=== PATIENT | female | born 1945 | race Caucasian/White ===

== ENCOUNTER 2019-07-24 08:36 | Inpatient (IN) | payer MEDICARE, OTHER ==
[~2019-07-24] VITALS: Ht 172.7 cm; Wt 78.9 kg
[2019-07-24 10:00] VITALS: BP 138/69
--- NOTE | 2019-07-24 10:15 | NUR ---
MS PLATFORM ENGINEER NOTES Received Patient via gurney from [facility] at this time. A/O x 3-4. VS stable with no acute distress. Breathing even and unlabored on room air with no respiratory distress. Patient stated LEFT HIP pain of 6/10. Will intervene as ordered. Obtained skin assessment pictures and placed in chart. Patient refused skin assessment of BACK and FEET d/t pain upon movement. Dan Cath in place and patent with clear flor output noted. 22g PIV on LEFT HAND clean, dry, intact and flushing well. Safety precautions in place. Bed locked and set to lowest position with side rails x 2 up. All needs rendered at this time. Call light within reach. Will continue to monitor.
[2019-07-24] MEDS ORDERED: CITA20TA16 PO (11:31)
[2019-07-24] MEDS ORDERED: CARV25TA PO (11:31)
[2019-07-24] MEDS ORDERED: AMLO10TA4 PO (11:31)
[2019-07-24] MEDS ORDERED: METF500S7 PO (11:31)
[2019-07-24] MEDS ORDERED: TRAM50TA2 PO (11:31)
[2019-07-24] MEDS ORDERED: ENAL10TA PO (11:31)
[2019-07-24] MEDS ORDERED: GABA-534 PO (11:31)
[2019-07-24] MEDS ORDERED: ROSU10TA29 PO (11:31)
[2019-07-24] MEDS ORDERED: FURO-144 PO (11:31)
[2019-07-24] MEDS ORDERED: LORA0.5T PO (11:31)
--- NOTE | 2019-07-24 12:00 | NUR ---
MS RN NOTES Notified Kisha MEIER, Patient complains of pain 6/10 on LEFT HIP s/p GLF. Per MD, may place order for Morphine Sulfate 4mg IVP PRN q4h. Order noted and carried out. Will continue to monitor.
[2019-07-24] MEDS ORDERED: Z GUARD REMEDY 2 OZ OINT TP PRN (13:00)
[2019-07-24] MEDS ORDERED: ONDANSETRON HCL/PF 4 MG/2 ML VIAL IVP PRN (13:00)
[2019-07-24] MEDS: MORPHINE SULFATE INJ 4 MG/ML DISP.SYRIN IV PRN ×2 (13:05→17:16)
[2019-07-24 14:54] LABS: CALCIUM, SERUM 8.5 mg/dL (8.5-10.1); CARBON DIOXIDE 24 mmol/L (21-32); CHLORIDE 103 mmol/L (98-107); CREATININE 0.5 mg/dL (0.6-1.3); GLUCOSE 136 mg/dL (74-106); POTASSIUM 3.8 mmol/L (3.5-5.1); SODIUM SERUM 137 mmol/L (136-145); UREA NITROGEN, BLOOD 12 mg/dL (7-18)
--- NOTE | 2019-07-24 15:29 | NUR ---
MS RN NOTES Patient states "feeling anxious" and request Ativan. Notified Kisha MEIER. Per MD, may give Ativan 1mg PO PRN q8h. Order noted and carried out. Will continue to monitor.
[2019-07-24 16:00] VITALS: BP 150/70
[2019-07-24] MEDS: ENOXAPARIN SODIUM 40 MG/0.4 ML DISP.SYRIN SQ SCH ×2 (16:06→20:33)
[2019-07-24] MEDS: LORAZEPAM 1 MG TABLET PO PRN (16:08)
[2019-07-24] MEDS: ACETAMINOPHEN 325 MG TABLET PO PRN ×3 (16:17→22:18)
--- NOTE | 2019-07-24 18:33 | NUR ---
MS RN NOTES Obtained signed surgical consents at this time. Patient verbalized understanding. Placed signed consents in chart.
--- NOTE | 2019-07-24 18:44 | NUR ---
MS RN CLOSING NOTES Patient asleep and resting at this time. A/O x 4. VS stable with no acute distress. Breathing even and unlabored on 2LPM via NC with no respiratory distress. Patient stated tolerable LEFT HIP pain of 4/10. Administered Morphine 4mg IVP at 1746. Dan Cath in place and patent with clear flor output noted. 22g PIV on LEFT HAND clean, dry, intact and flushing well. Safety precautions in place. Bed locked and set to lowest position with side rails x 2 up. All needs rendered at this time. Call light within reach. Will endorse plan of care to oncoming shift.
--- NOTE | 2019-07-24 19:30 | NUR ---
MS RN OPENING NOTE RECEIVED PATIENT IN BED. A/O X4. PATIENT ON OXYGEN 2L/MIN VIA NASAL CANNULA. RESPIRATIONS ARE EVEN A ND UNLABORED. NO SIGNS OF SOB. DENIES PAIN AT THIS TIME. IV ACCESS IN LEFT HAND GAUGE 22 PATENT AND SALINE LOCKED. ATKINS CATHETER PRESENT, DRAINING TO GRAVITY, URINE IS CLEAR AND YNES. BED IS LOW AND LOCK, SIDE RAILS UP X2, HOB ELEVATED 70 DEGREES. CALL LIGHT WITHIN REACH. WILL CONTINUE TO MONITOR.
[2019-07-24 20:00] VITALS: BP 132/62
[2019-07-24 20:01] VITALS: BP 132/62
--- NOTE | 2019-07-24 20:29 | NUR ---
MS RN NOTE CALLED DR COOK TO ASK IF PATIENT IS OK TO RECEIVE LOVENOX 40MG D/T SCHEDULES SURGERY FOR 07/26 AT 1300. TELEPHONE ORDER: OK TO GIVE LOVENOX 40MG, READ BACK AND CARRIED OUT. WILL CONTINUE TO MONITOR.
--- NOTE | 2019-07-24 22:20 | NUR ---
MS RN NOTE ADMINISTERED PRN TYLENOL 650MG FOR MILD PAIN 3/10 IN LEFT LEG. WILL CONTINUE TO MONITOR.
[2019-07-25] MEDS: MORPHINE SULFATE INJ 4 MG/ML DISP.SYRIN IV PRN ×5 (01:05→20:19)
--- NOTE | 2019-07-25 01:05 | NUR ---
MS RN NOTE ADMINISTERED PRN MORPHINE 4MG FOR 8/10 PAIN IN LEFT HIP. WILL CONTINUE TO MONITOR.
--- NOTE | 2019-07-25 06:15 | NUR ---
MS RN NOTE ADMINISTERED PRN MORPHINE 4MG FOR 10/10 LEFT HIP PAIN. WILL CONTINUE TO MONITOR.
[2019-07-25 06:47] LABS: BASOPHILS % (AUTO) 0.3 % (0.0-2.0); EOSINOPHILS % (AUTO) 2.3 % (0.0-6.0); HEMATOCRIT 39 % (33-45); HEMOGLOBIN 13.4 g/dL (11.5-14.8); LYMPHOCYTES # (AUTO) 0.7 /CMM (0.8-4.8); LYMPHOCYTES % (AUTO) 7.3 % (20.0-44.0); MEAN CORPUSCULAR HGB CONC 34 g/dl (31.0-36.0); MEAN CORPUSCULAR VOLUME 83 fL (82-100); MONOCYTES # (AUTO) 0.6 /CMM (0.1-1.30); MONOCYTES % (AUTO) 5.9 % (2.0-12.0); NEUTROPHILS # (AUTO) 8.2 /CMM (1.8-8.9); NEUTROPHILS % (AUTO) 84.2 % (43.0-81.0); PLATELET COUNT (AUTO) 152 /CMM (150-450); RED BLOOD CELL COUNT(AUTO) 4.73 MIL/uL (4.0-5.2); WHITE BLOOD COUNT (AUTO) 9.8 K/uL (4.3-11.0)
--- NOTE | 2019-07-25 06:58 | NUR ---
MS RN CLOSING NOTE PATIENT IS RESTING IN BED. A/O X4. PATIENT ON OXYGEN 2L/MIN VIA NASAL CANNULA. RESPIRATIONS ARE EVEN A ND UNLABORED. NO SOB THROUGHOUT SHIFT. CONTROLLED PAIN WITH MORPHINE 4MG THROUGHOUT SHIFT. IV ACCESS MAINTAINED IN LEFT HAND GAUGE 22 PATENT AND SALINE LOCKED. ATKINS CATHETER MAINTAINED, DRAINING TO GRAVITY, URINE IS CLEAR AND YNES OUTPUT 600. SKIN KEPT CLEAN AND DRY. REFUSED REPOSITIONING D/T L HIP FRACTURE. BED REMAINS IS LOW AND LOCK, SIDE RAILS UP X2, HOB ELEVATED 70 DEGREES. CALL LIGHT WITHIN REACH. WILL ENDORSE TO NEXT SHIFT FOR THERESA.
[2019-07-25 07:07] LABS: ALANINE AMINOTRANSFERASE < 6 U/L (12-78); ALBUMIN 3.4 g/dL (3.4-5.0); ALKALINE PHOSPHATASE 126 U/L (46-116); ASPARTATE AMINOTRANSFERASE 6 U/L (15-37); BILIRUBIN,TOTAL 1.3 mg/dL (0.2-1.0); CALCIUM, SERUM 8.6 mg/dL (8.5-10.1); CARBON DIOXIDE 25 mmol/L (21-32); CHLORIDE 100 mmol/L (98-107); CREATININE 0.5 mg/dL (0.6-1.3); GLUCOSE 139 mg/dL (74-106); PHOSPHORUS 3.7 mg/dL (2.5-4.9); POTASSIUM 3.8 mmol/L (3.5-5.1); SODIUM SERUM 134 mmol/L (136-145); TOTAL PROTEIN, SERUM 6.9 g/dL (6.4-8.2); UREA NITROGEN, BLOOD 11 mg/dL (7-18)
[2019-07-25 07:21] LABS: CHOLESTEROL 117 mg/dL (<200); HDL CHOLESTEROL 52 mg/dL (40-60); LDL 54 mg/dL (0-99); THYROID STIMULATING HORMONE 1.504 uIU/mL (0.358-3.74); TRIGLYCERIDES 72 mg/dL (30-150)
[2019-07-25] MEDS: ACETAMINOPHEN 325 MG TABLET PO PRN ×2 (07:45→15:20)
--- NOTE | 2019-07-25 07:45 | NUR ---
MS/RN - Assessment Patient is awake, anxious, A/O x 4, c/o mild left hip pain, medicated with Tylenol 650 mg, no apparent distress, on oxygen at 2lpm via NC. Dan catheter in place for hip fracture, draining dark yellow urine. Plan for left hip IM nailing with Dr. Rivas tomorrow 07/25/19 at 13:00, consent signed, continue NWB on the LLE. Labs reviewed, no critical results noted. All needs attended. Will continue with current medical management.
[2019-07-25 08:00] VITALS: BP 141/65
[2019-07-25] MEDS: LORAZEPAM 1 MG TABLET PO PRN ×2 (08:11→16:26)
--- NOTE | 2019-07-25 13:00 | NUR ---
MS/RN - Notes Patient refused to be turned and repositioned every 2 hours and specialty mattress to be placed for skin management. Explained the importance but still refused.
--- NOTE | 2019-07-25 15:05 | NUR ---
MS/RN - Notes Patient sleeping comfortably, no s/s of pain, not in any form of distress.
[2019-07-25 16:00] VITALS: BP 167/72
--- NOTE | 2019-07-25 17:51 | NUR ---
MS/RN - End of shift summary No significant change in condition seen, remain afebrile, left hip pain controlled with Morphine alternating with Tylenol, anxious at times, Ativan given as ordered. Patient still refused to be repositioned per protocol. Patient scheduled for left hip IM nailing tomorrow at 13:[address] Rivas. All needs attended and met. Will continue with current medical management.
--- NOTE | 2019-07-25 19:10 | NUR ---
MS RN NOTE RECEIVED PT IN STABLE CONDITION A/O X4, CURRENTLY RESTING, EASILY AROUSABLE WHEN NAME IS CALLED. NO SIGNS OF SOB OR DISTRESS, PAIN CURRENTLY TOLERABLE. ATKINS IN PLACE WITH ADEQUATE YELLOW URINE DRAINING. IV IN L HAND IN PLACE #[address] S/L. OFFERED TO REPLACE PT MATTRESS, CURRENTLY REFUSING. ALL CURRENT NEEDS ATTENDED TO. BED LOW, LOCKED, UPPER RAILS UP AND CALL LIGHT WITHIN REACH. WILL CONT. TO MONITOR.
[2019-07-25 20:00] VITALS: BP 147/65
[2019-07-25] MEDS: ENOXAPARIN SODIUM 40 MG/0.4 ML DISP.SYRIN SQ SCH (21:00)
[2019-07-25] MEDS: Z GUARD REMEDY 2 OZ OINT TP SCH (21:39)
--- NOTE | 2019-07-25 22:00 | NUR ---
MS RN NOTE ATTEMPTED TO CHANGE PT MATTRESS, PT DECLINED. STATED THAT IT SHOULD BE DONE WHILE SHE IS IN SURGERY. SHE ALSO STATES SHE DOES NOT WANT TO BE REPOSITIONED. WILL CONT. TO ASSESS AND ASK PT THROUGHOUT SHIFT.
[2019-07-26] MEDS: MORPHINE SULFATE INJ 4 MG/ML DISP.SYRIN IV PRN ×5 (02:00→22:30)
--- NOTE | 2019-07-26 02:00 | NUR ---
MS RN NOTE PT ASKING FOR PRN MORPHINE IV FOR PAIN 9/10 IN L HIP. ALSO ASKED PT IF SHE WOULD LIKE TO BE REPOSITIONED, SHE DECLINED, RISKS AND BENEFITS MADE AWARE WITH VERBALIZATION OF UNDERSTANDING.
--- NOTE | 2019-07-26 04:50 | NUR ---
MS ARGUETA NOTE PT C/O L HIP PAIN 06/17 MORPHINE 4 MG IV GIVEN. WILL CONT. TO MONITOR. Addendum: 07/27/19 at 0613 by MIA FELTON RN WRONG DATE TYPED. SUPPOSED TO BE 07/27/19
--- NOTE | 2019-07-26 05:57 | NUR ---
MS RN NOTE PT DECLINED REPOSITIONING, BED BATH, AND LINEN CHANGE. RISKS AND BENEFITS MADE AWARE WITH VERBALIZATION OF UNDERSTANDING. WILL CONT. TO MONITOR.
[2019-07-26 06:11] LABS: BASOPHILS % (AUTO) 0.7 % (0.0-2.0); EOSINOPHILS % (AUTO) 3.7 % (0.0-6.0); HEMATOCRIT 36 % (33-45); HEMOGLOBIN 12.4 g/dL (11.5-14.8); LYMPHOCYTES # (AUTO) 1.3 /CMM (0.8-4.8); LYMPHOCYTES % (AUTO) 18.5 % (20.0-44.0); MEAN CORPUSCULAR HGB CONC 34 g/dl (31.0-36.0); MEAN CORPUSCULAR VOLUME 83 fL (82-100); MONOCYTES # (AUTO) 0.6 /CMM (0.1-1.30); MONOCYTES % (AUTO) 8.7 % (2.0-12.0); NEUTROPHILS # (AUTO) 4.7 /CMM (1.8-8.9); NEUTROPHILS % (AUTO) 68.4 % (43.0-81.0); PLATELET COUNT (AUTO) 150 /CMM (150-450); WHITE BLOOD COUNT (AUTO) 6.9 K/uL (4.3-11.0)
--- NOTE | 2019-07-26 06:24 | NUR ---
MS RN NOTE PT IN STABLE CONDITION A/O X4, CURRENTLY RESTING, EASILY AROUSABLE WHEN NAME IS CALLED. NO SIGNS OF SOB OR DISTRESS, PAIN CURRENTLY TOLERABLE. ATKINS IN PLACE WITH . IV IN L HAND IN PLACE #[address] S/L. OFFERED TO REPLACE PT MATTRESS, REPOSITION, AND CLEAN PATIENT, CURRENTLY REFUSING, STATING TO PLEASE LEAVE HER ALONE. PT NPO SINCE MIDNIGHT, AWARE OF TODAY'S PROCEDURE, CONSENTS SIGNED. ALL CURRENT NEEDS ATTENDED TO. BED LOW, LOCKED, UPPER RAILS UP AND CALL LIGHT WITHIN REACH. WILL CONT. TO MONITOR AND ENDORSE TO NEXT SHIFT FOR THERESA.
[2019-07-26 06:39] LABS: CALCIUM, SERUM 8.4 mg/dL (8.5-10.1); CARBON DIOXIDE 26 mmol/L (21-32); CHLORIDE 100 mmol/L (98-107); CREATININE 0.4 mg/dL (0.6-1.3); GLUCOSE 124 mg/dL (74-106); MAGNESIUM 2.1 mg/dL (1.8-2.4); POTASSIUM 3.9 mmol/L (3.5-5.1); SODIUM SERUM 135 mmol/L (136-145); UREA NITROGEN, BLOOD 11 mg/dL (7-18)
--- NOTE | 2019-07-26 07:16 | NUR ---
MS RN NOTES PATIENT IN BED ALERT ORIENTED X 4 . NO ACUTE DISTRESS NOTED. BREATHING UNLABORED. IV ACCESS PATENT AND INTACT. SAFETY MEASURES IN PLACE. CALL LIGHT WITHIN REACH. WILL CONTINUE TO MONITOR ACCORDINGLY.
[2019-07-26 08:00] VITALS: BP 152/62
[2019-07-26 08:06] VITALS: BP 152/62
--- NOTE | 2019-07-26 09:15 | NUR ---
WOUND CARE CONSULT: PT PRESENTS WITH RASH TO BREASTFOLDS, ABDOMINAL AND GROIN FOLDS, PRESENT ON ADMISSION WELL DRY SKIN WITH HEMOSIDERIN STAINING AND SCARRING TO LOWER LEGS. PT REFUSED TO TURN FOR FULL SKIN ASSESSMENT OF BACK, SACRAL AND BUTTOCKS AREA. RECOMMENDATIONS MADE FOR SKIN PROTECTION. DISCUSSED WITH NURSING STAFF. WILL SEE PRN. MEIER IN AGREEMENT WITH PLAN OF CARE. Addendum: 07/26/19 at 0917 by KAELYN PALM WNDNU Amended: Links added.
[2019-07-26] MEDS: Z GUARD REMEDY 2 OZ OINT TP SCH ×2 (09:58→21:06)
--- NOTE | 2019-07-26 10:30 | NUR ---
MS RN NOTES FOLLOWED UP WITH PHARMACY EUCERIN CREAM NOT AVAILABLE ON THE FLOOR AT THIS TIME, SPOKE WITH [facility], THEY WILL BRING TO THE FLOOR. WILL ADMINISTER ONCE AVAILABLE.
[2019-07-26] MEDS: LORAZEPAM 1 MG TABLET PO PRN ×2 (10:37→20:25)
--- NOTE | 2019-07-26 10:37 | NUR ---
MS RN NOTES PATIENT SEEN AND EVALUATED BY DR KACI QUINONES, PER DR QUINONES OK TO GIVE ATIVAN AND MORPHINE. ATIVAN GIVEN WITH ZIP OF WATER.
--- NOTE | 2019-07-26 11:28 | NUR ---
MS RN NOTES PATIENT REFUSED TO TURN FOR FULL SKIN ASSESSMENT OF BACK, SACRAL AND BUTTOCKS AREA DESPITE OF EXPLANATION OF RISKS AND BENEFITS. PATIENT STATED " I DON'T WANT TO BE MOVED ".
[2019-07-26] MEDS: MINERAL OIL/PETROLATUM,WHITE 120 GM JAR TP SCH (11:32)
--- NOTE | 2019-07-26 13:40 | NUR ---
MS RN NOTES PATIENT TRANSPORTED TO OPERATING ROOM WITH STABLE VITAL SIGNS.
[2019-07-26] MEDS ORDERED: HYDROMORPHONE INJ 2 MG/ML DISP.SYRIN ONE (14:07)
[2019-07-26] MEDS ORDERED: BUPIVACAINE 0.5 % PF 150 MG/30 ML VIAL ONE (15:01)
[2019-07-26] MEDS ORDERED: BACITRACIN 50000 UNITS/VIAL ONE (15:01)
[2019-07-26 16:00] VITALS: BP 151/78
--- NOTE | 2019-07-26 16:30 | NUR ---
MS RN NOTES PATIENT CAME BACK FROM RECOVERY ROOM, REPORT GIVEN BY YUKI AT BEDSIDE, ALERT ORIENTED X 4 WITH STABLE VITAL SIGNS. NO ACUTE DISTRESS NOTED. BREATHING UNLABORED. ON O2 AT 2LPM SATURATING 97-98 %. IV ACCESS PATENT AND INTACT. SAFETY MEASURES IN PLACE. CALL LIGHT WITHIN REACH. WILL CONTINUE TO MONITOR ACCORDINGLY.
[2019-07-26] MEDS: CLOTRIMAZOLE 1% 15 GM TUBE TP SCH (17:04)
--- NOTE | 2019-07-26 19:02 | NUR ---
MS RN NOTES PATIENT IN ALERT ORIENTED X 4.VITAL SIGNS REMAIN STABLE. NO ACUTE DISTRESS NOTED. BREATHING UNLABORED. IV ACCESS PATENT AND INTACT. NEEDS ATTENDED AND ANTICIPATED. KEPT CLEAN DRY AND COMFORTABLE.LEFT HIP AND LEFT THIGH DRESSING CLEAN DRY AND INTACT. SAFETY MEASURES IN PLACE. CALL LIGHT WITHIN REACH. WILL ENDORSE TO NIGHT NURSE FOR CONTINUITY OF CARE
--- NOTE | 2019-07-26 19:05 | NUR ---
MS RN NOTE RECEIVED PT IN STABLE CONDITION A/O X4, CURRENTLY RESTING IN BED. NO SIGNS OF SOB OR DISTRESS, NO C/O PAIN OR N/V. L SIDE SX SITE DRY AND INTACT. ATKINS IN PLACE WITH ADEQUATE URINE DRAINING. IV IN R WRIST #[address] S/L. ALL CURRENT NEEDS ATTENDED TO. BED LOW, LOCKED, UPPER RAILS UP, AND CALL LIGHT WITHIN REACH, WILL OFFER TO REPOSITION PT PER PROTOCOL AND CONT. TO MONITOR CLOSELY.
[2019-07-26 20:00] VITALS: BP 156/71
--- NOTE | 2019-07-26 20:25 | NUR ---
MS RN NOTE PT C/O ANXIETY, ATIVAN 1 MG IV GIVEN. WILL CONT. TO MONITOR.
[2019-07-26] MEDS: CEFAZOLIN 2 GM in IV D5W 100 ML IV SCH (21:05)
--- NOTE | 2019-07-26 22:30 | NUR ---
MS RN NOTE PT C/O L HIP PAIN 07/18 MORPHINE 4 MG IV GIVEN. WILL CONT. TO MONITOR
[2019-07-27] MEDS: MORPHINE SULFATE INJ 4 MG/ML DISP.SYRIN IV PRN ×4 (04:50→22:41)
--- NOTE | 2019-07-27 04:50 | NUR ---
MS RN NOTE PT C/O L HIP PAIN 07/18 MORPHINE 4 MG IV GIVEN. WILL CONT. TO MONITOR.
[2019-07-27] MEDS: CEFAZOLIN 2 GM in IV D5W 100 ML IV SCH ×2 (05:00→14:59)
--- NOTE | 2019-07-27 06:16 | NUR ---
MS RN NOTE PT IN STABLE CONDITION A/O X4, CURRENTLY RESTING IN BED. NO SIGNS OF SOB OR DISTRESS, NO C/O PAIN OR N/V. L SIDE SX SITE DRY AND INTACT. ATKINS IN PLACE WITH 800 ML OUT. IV IN R WRIST #[address] S/L. ALL CURRENT NEEDS ATTENDED TO. BED LOW, LOCKED, UPPER RAILS UP, AND CALL LIGHT WITHIN REACH, PT REPOSITIONED PER PROTOCOL AND CONT. TO MONITOR CLOSELY AND ENDORSE TO NEXT SHIFT FOR THERESA.
--- NOTE | 2019-07-27 07:10 | NUR ---
MS RN NOTES PATIENT IN BED ALERT ORIENTED X 4 . NO ACUTE DISTRESS NOTED. BREATHING UNLABORED. IV ACCESS PATENT AND INTACT. LEFT HIP AND THIGH DRESSING CLEAN, DRY AND INTACT. ATKINS CATHETER INTACT, DRAINING WELL. SAFETY MEASURES IN PLACE. CALL LIGHT WITHIN REACH. WILL CONTINUE TO MONITOR ACCORDINGLY.
[2019-07-27 07:40] LABS: CARBON DIOXIDE 26 mmol/L (21-32); CHLORIDE 99 mmol/L (98-107); CREATININE 0.5 mg/dL (0.6-1.3); GLUCOSE 159 mg/dL (74-106); MAGNESIUM 2.3 mg/dL (1.8-2.4); PHOSPHORUS 3.2 mg/dL (2.5-4.9); POTASSIUM 4.6 mmol/L (3.5-5.1); SODIUM SERUM 134 mmol/L (136-145); UREA NITROGEN, BLOOD 14 mg/dL (7-18)
[2019-07-27 08:00] VITALS: BP 160/70
[2019-07-27] MEDS: MINERAL OIL/PETROLATUM,WHITE 120 GM JAR TP SCH (08:30)
[2019-07-27] MEDS: CLOTRIMAZOLE 1% 15 GM TUBE TP SCH ×2 (08:30→17:15)
[2019-07-27] MEDS: Z GUARD REMEDY 2 OZ OINT TP SCH ×2 (08:32→21:00)
--- NOTE | 2019-07-27 08:35 | NUR ---
MS RN NOTES PATIENT SEEN AND EVALUATED BY LEANNE SAHU DNP, MADE AWARE OF BLOOD PRESSURE 160/70, NO NEW ORDERS MADE AT THIS TIME. ALSO CLARIFIED ATKINS CATHETER SAID TO KEEP ATKINS CATHETER UNTIL PATIENT IS WALKING ALREADY.
[2019-07-27 09:23] LABS: BASOPHILS % (AUTO) 0.4 % (0.0-2.0); EOSINOPHILS % (AUTO) 0.5 % (0.0-6.0); HEMATOCRIT 36 % (33-45); HEMOGLOBIN 12.2 g/dL (11.5-14.8); LYMPHOCYTES # (AUTO) 0.9 /CMM (0.8-4.8); LYMPHOCYTES % (AUTO) 10.2 % (20.0-44.0); MEAN CORPUSCULAR HGB CONC 34 g/dl (31.0-36.0); MEAN CORPUSCULAR VOLUME 83 fL (82-100); MONOCYTES # (AUTO) 0.6 /CMM (0.1-1.30); MONOCYTES % (AUTO) 6.8 % (2.0-12.0); NEUTROPHILS # (AUTO) 7.6 /CMM (1.8-8.9); NEUTROPHILS % (AUTO) 82.1 % (43.0-81.0); PLATELET COUNT (AUTO) 151 /CMM (150-450); RED BLOOD CELL COUNT(AUTO) 4.37 MIL/uL (4.0-5.2); WHITE BLOOD COUNT (AUTO) 9.2 K/uL (4.3-11.0)
[2019-07-27] MEDS: ENOXAPARIN SODIUM 40 MG/0.4 ML DISP.SYRIN SQ SCH (15:00)
[2019-07-27 15:45] VITALS: BP 145/64
--- NOTE | 2019-07-27 18:55 | NUR ---
MS RN NOTES PATIENT REFUSED TO BE REPOSITIONED AND TO CHECK HER BACK DESPITE OF EXPLANATION OF RISKS AND BENEFITS.
--- NOTE | 2019-07-27 19:00 | NUR ---
MS RN NOTES PATIENT IN BED ALERT ORIENTED X 4 . NO ACUTE DISTRESS NOTED. BREATHING UNLABORED. IV ACCESS PATENT AND INTACT. LEFT HIP AND THIGH SURGICAL DRESSING CLEAN, DRY AND INTACT. ATKINS CATHETER INTACT, DRAINING WELL. NEEDS ATTENDED AND ANTICIPATED. KEPT CLEAN DRY AND COMFORTABLE. DUE MEDICATIONS GIVEN, NO ASE NOTED. SAFETY MEASURES IN PLACE. CALL LIGHT WITHIN REACH. WILL ENDORSE TO NIGHT NURSE FOR CONTINUITY OF CARE.
--- NOTE | 2019-07-27 19:30 | NUR ---
MS RODOLFO INITIAL NOTES WHILE DOING OUT ROUNDS AND GETTING REPORT FROM AM NURSE , SEEN PT IN BED SITTING WATCHING TV AT THIS TIME, INTRODUCE MYSELF HER NURSE FOR TONIGHT. PT DENIES ANY PAIN OR ANY DISCOMFORT. DRESSING ON HER LEFT HIP AND LEFT THIGH DRY AND INTACT. PT ALSO WITH ATKINS TO GRAVITY YNES IN COLORED . HEPLOCK BOTH PATENT AND INTACT. PT ON [employer] FOR PT COMFORT. KEPT HER WARM AND COMFORTABLE AT ALL TIMES. PLACE CALL LIGHT AT REACH. WILL CONTINUE MONITORING.
[2019-07-27 20:00] VITALS: BP 163/67
--- NOTE | 2019-07-27 22:44 | NUR ---
ms/rn notes pain reported of 6/10, guarding g.rimace and irritability, sbp 160. respirations even and unlabored, on oxygen at 4 liter via nc. skin warm to touch, alert, oriented, ib slow push given as needed for pain, will monitor location on left hip.
--- NOTE | 2019-07-28 00:15 | NUR ---
MS RODOLFO NOTES PT CHECKED AND SEEN WATCHING TV, SHE STATED PAIN MUCH BETTER KEPT HER WARM AND COMFORTABLE AT ALL TIMES WILL CONTINUE MONITORING. PLACE CALL LIGHT AT REACH.
[2019-07-28] MEDS: MORPHINE SULFATE INJ 4 MG/ML DISP.SYRIN IV PRN ×2 (05:33→13:42)
--- NOTE | 2019-07-28 05:33 | NUR ---
ms/rn notes patient awake, alert x3, able to verbalize needs with 7/10 pain on left hip, morphine ivp 4mg/1ml to administer , sbp above 150. bed locked, call lights within reach.
[2019-07-28 06:48] LABS: BASOPHILS % (AUTO) 0.5 % (0.0-2.0); EOSINOPHILS % (AUTO) 3.3 % (0.0-6.0); HEMATOCRIT 33 % (33-45); HEMOGLOBIN 11.4 g/dL (11.5-14.8); LYMPHOCYTES # (AUTO) 1.4 /CMM (0.8-4.8); LYMPHOCYTES % (AUTO) 16.2 % (20.0-44.0); MEAN CORPUSCULAR HGB CONC 34 g/dl (31.0-36.0); MEAN CORPUSCULAR VOLUME 83 fL (82-100); MONOCYTES # (AUTO) 0.7 /CMM (0.1-1.30); MONOCYTES % (AUTO) 8.8 % (2.0-12.0); NEUTROPHILS % (AUTO) 71.2 % (43.0-81.0); PLATELET COUNT (AUTO) 143 /CMM (150-450); RED BLOOD CELL COUNT(AUTO) 4.04 MIL/uL (4.0-5.2); WHITE BLOOD COUNT (AUTO) 8.5 K/uL (4.3-11.0)
[2019-07-28 07:05] LABS: CALCIUM, SERUM 8.6 mg/dL (8.5-10.1); CARBON DIOXIDE 27 mmol/L (21-32); CHLORIDE 99 mmol/L (98-107); CREATININE 0.4 mg/dL (0.6-1.3); GLUCOSE 142 mg/dL (74-106); POTASSIUM 3.9 mmol/L (3.5-5.1); SODIUM SERUM 134 mmol/L (136-145); UREA NITROGEN, BLOOD 15 mg/dL (7-18)
--- NOTE | 2019-07-28 07:43 | NUR ---
MS PULMONARY FUNCTION TECHNOLOGIST CLOSING NOTES PT RESTING COMFORTABLY IN BED WITHOUT ANY DISTRESS NOTED. STABLE AMA THE NIGHT EXCEPT SOME PAIN FROM HER SURGERY SITE. ALL DUE MEDS GIVEN AND ALL NEEDS MET. KEPT HER WARM AND COMFORTABLE AT ALL TIMES. ENDORSE TO AM NURSE.
[2019-07-28] MEDS: CLOTRIMAZOLE 1% 15 GM TUBE TP SCH ×2 (08:32→16:31)
[2019-07-28] MEDS: MINERAL OIL/PETROLATUM,WHITE 120 GM JAR TP SCH (08:32)
[2019-07-28] MEDS: Z GUARD REMEDY 2 OZ OINT TP SCH (08:33)
[2019-07-28 08:34] VITALS: BP 118/50
[2019-07-28] MEDS: ENOXAPARIN SODIUM 40 MG/0.4 ML DISP.SYRIN SQ SCH (08:34)
--- NOTE | 2019-07-28 13:26 | NUR ---
MS RN NOTES PATIENT SEEN AND EVALUATED BY LEANNE SAHU DNP WITH NEW ORDERS MADE. NOTED AND CARRIED OUT
[2019-07-28] MEDS ORDERED: HYDROCODONE/APAP 10/325MG 1 EA TABLET PO PRN (13:30)
[2019-07-28] MEDS ORDERED: HYDROCODONE/APAP 5/325MG 1 EACH TABLET PO PRN (13:30)
[2019-07-28 15:31] VITALS: BP 145/65
--- NOTE | 2019-07-28 17:25 | NUR ---
MS RN NOTES PATIENT IN BED ALERT ORIENTED X 4. NO ACUTE DISTRESS NOTED, BREATHING UNLABORED. SAFETY MEASURES IN PLACE. CALL LIGHT WITHIN REACH. PATIENT REFUSED TO BE REPOSITIONED AND TO CHECK HER BACK SAID " DON'T MOVE ME " DESPITE OF EXPLANATION OF RISK AND BENEFITS. PATIENT ALLOWED BREAST FOLD, ABDOMINAL FOLD, LOWER EXTREMITIES, GROIN AREA PICTURE TAKEN AND WOUND/SKIN CARE DONE. PATIENT FOR DISCHARGE REPORT GIVEN TO NOEMI ARGUETA OF [facility]. ENDORSED TO TIO ARGUETA FOR CONTINUITY OF CARE AND DISCHARGE.
--- NOTE | 2019-07-28 19:27 | NUR ---
MS INTERNAL COMBUSTION ENGINE ASSEMBLER NOTES PT TO [facility]CHARGE TO [facility]. PT A/O X4. PT ON SUPPLEMENTARY OXYGEN AT 2LPM, WITH NO ACUTE RESPIRATORY DISTRESS NOTED. PT DENIES PAIN OR DISCOMFORT AT THE TIME OF DISCHARGE. PIV TO LEFT HAND AND RIGHT WRIST REMOVED, APPLIED DRY DRESSING. ABDUCTOR PILLOW PRESENT BETWEEN LEGS. FC IN PLACE WITH YELLOW URINE, EMPTIED CATH. PT'S VITALS STABLE. PICTURES TAKEN FOR SKIN ISSUES, FILED IN THE CHART. ALL NEEDS AND CARE ATTENDED. 2 PARAMEDICS/MANAGEMENT ANALYST PRESENT AND TRANSFERRED PT TO [facility]. PT LEFT THE UNIT AT 1925. CN AND MD AWARE OF DISCHARGE.
== END 2019-07-28 19:25 | DRG 482 ==
LOC: MED 10:04
PROVIDERS: ADMIT Nurse Practitioner Acute Care; ATTEND Nurse Practitioner Acute Care
PROC: 0QS706Z Reposition Left Upper Femur with Intramedullary Internal Fixation Device, Open Approach (ICD-10-PCS; principal; 2019-07-26)
DX: S72.142A Displaced intertrochanteric fracture of left femur, initial encounter for closed fracture (principal); W01.0XXA Fall on same level from slipping, tripping and stumbling without subsequent striking against object, initial encounter; E11.9 Type 2 diabetes mellitus without complications; E78.5 Hyperlipidemia, unspecified; I10 Essential (primary) hypertension; I25.10 Atherosclerotic heart disease of native coronary artery without angina pectoris; Z90.710 Acquired absence of both cervix and uterus; E66.9 Obesity, unspecified; Z68.26 Body mass index [BMI] 26.0-26.9, adult; K46.9 Unspecified abdominal hernia without obstruction or gangrene; L98.8 Other specified disorders of the skin and subcutaneous tissue; Z79.84 Long term (current) use of oral hypoglycemic drugs; Y93.89 Activity, other specified; Y92.89 Other specified places as the place of occurrence of the external cause
CPT/HCPCS: 36415; 71045-TC; 73502; 80048-TC; 80053-TC; 80061-TC; 83735-TC; 84100-TC; 84443-TC; 85025-TC; 85610-TC; 86850-TC; 87081-TC; 93307-TC; 97110-TC; 97530-TC; A6209; C1713; G0378; J0690; J1100; J1170; J1650; J2270; J2405; J2704; J3490; J7050; J7060

== ENCOUNTER 2022-07-17 12:06 | Inpatient (IN) | payer MEDICARE, OTHER ==
[~2022-07-17] VITALS: Ht 160 cm; Wt 86.6 kg
[~2022-07-17 12:06] MED LIST: AMLO10TA4 PO; CARV25TA PO; CITA20TA16 PO; ENAL10TA39 PO; FURO-144 PO; GABA-534 PO; LORA0.5T PO; METF500S7 PO; ROSU10TA29 PO; TRAM50TA2 PO
--- NOTE | 2022-07-17 12:28 | NUR ---
CODE STROKE CALLED
--- NOTE | 2022-07-17 12:30 | NUR ---
PT TO CT VIA ACLS PROTOCALS.
--- NOTE | 2022-07-17 12:33 | NUR ---
CALLED [employer] [phone] WILL BE CAYETANO GRAJEDA
[2022-07-17 12:49] LABS: CALCIUM, SERUM 7.7 mg/dL (8.5-10.1); CARBON DIOXIDE 19 mmol/L (21-32); CHLORIDE 98 mmol/L (98-107); CREATININE 0.4 mg/dL (0.6-1.3); GLUCOSE 84 mg/dL (74-106); POTASSIUM 3.8 mmol/L (3.5-5.1); SODIUM SERUM 127 mmol/L (136-145); UREA NITROGEN, BLOOD 10 mg/dL (7-18)
[2022-07-17 13:00] LABS: BASOPHILS % (AUTO) 0.4 % (0.0-2.0); EOSINOPHILS % (AUTO) 0.8 % (0.0-6.0); HEMATOCRIT 37 % (33-45); HEMOGLOBIN 11.5 g/dL (11.5-14.8); LYMPHOCYTES # (AUTO) 3.7 K/uL (0.8-4.8); LYMPHOCYTES % (AUTO) 31.9 % (20.0-44.0); MEAN CORPUSCULAR HGB CONC 31 g/dl (31.0-36.0); MEAN CORPUSCULAR VOLUME 81 fL (82-100); MONOCYTES # (AUTO) 0.7 K/uL (0.1-1.30); NEUTROPHILS % (AUTO) 60.9 % (43.0-81.0); PLATELET COUNT (AUTO) 237 K/uL (150-450); RED BLOOD CELL COUNT(AUTO) 4.52 MIL/uL (4.0-5.2); WHITE BLOOD COUNT (AUTO) 11.5 K/uL (4.3-11.0)
--- NOTE | 2022-07-17 13:07 | NUR ---
DR LUCERO SPEAKING W/ PT VIA TELE CONSULT
--- NOTE | 2022-07-17 13:10 | NUR ---
SENIOR LABORATORY TECHNICIAN AT BEDSIDE FOR XRAY
[2022-07-17] MEDS ORDERED: PANT40TA2 PO (13:11)
[2022-07-17] MEDS ORDERED: FERR325T23 PO (13:11)
[2022-07-17] MEDS ORDERED: MIDO5TAB4 PO (13:11)
[2022-07-17] MEDS ORDERED: AMIN887L PO (13:11)
[2022-07-17] MEDS ORDERED: DIGO250T PO (13:11)
[2022-07-17] MEDS ORDERED: IPRA0.2S49 IH (13:11)
[2022-07-17] MEDS ORDERED: INSU100V42 SUBCUT (13:11)
[2022-07-17] MEDS ORDERED: LORA10TA7 PO (13:11)
[2022-07-17] MEDS ORDERED: ASCO500C17 PO (13:11)
[2022-07-17] MEDS ORDERED: POTA20PA3 PO (13:11)
[2022-07-17] MEDS ORDERED: APIX5TAB PO (13:11)
[2022-07-17] MEDS ORDERED: HYDR-3972 PO (13:11)
[2022-07-17] MEDS ORDERED: MAGN400T30 PO (13:11)
[2022-07-17] MEDS ORDERED: MULT-447 PO (13:11)
[2022-07-17] MEDS ORDERED: LIDO30AD10 TP (13:11)
--- NOTE | 2022-07-17 13:14 | NUR ---
MOVE SHEET SUBMITTED.
--- NOTE | 2022-07-17 13:26 | NUR ---
COVID SWAB COLLECTED AND SENT TO LAB
--- NOTE | 2022-07-17 13:54 | NUR ---
PT REPOSITIONED IN BED; CURRENTLY WATCHING TV, NOT IN ACUTE DISTRESS.
[2022-07-17 14:13] LABS: LYMPHOCYTES % (MANUAL) 20 % (16-48); MONOCYTES % (MANUAL) 5 % (0-11.0); NEUTROPHILS % (MANUAL) 75 (42-76)
--- NOTE | 2022-07-17 15:20 | NUR ---
ALANNA ALFORD (BROTHER) [phone]
[2022-07-17] MEDS ORDERED: IV NS 0.9% 1,000 ML IV ONE (15:30)
[2022-07-17] MEDS ORDERED: DEXTROSE 50%-WATER 50 ML DISP.SYRIN IV PRN (17:00)
[2022-07-17] MEDS ORDERED: IPRATROPIUM NEB FS 0.5 MG/2.5 ML AMPUL.NEB IH PRN (17:00)
[2022-07-17] MEDS ORDERED: MORPHINE SULFATE INJ 2 MG/ML DISP.SYRIN IV PRN (17:00)
[2022-07-17] MEDS: BLOOD SUGAR DIAGNOSTIC 1 EACH STRIP VI SCH ×2 (17:46→22:56)
[2022-07-17] MEDS ORDERED: APIXABAN 5 MG TABLET ONE (17:51)
[2022-07-17] MEDS: APIXABAN 5 MG TABLET PO SCH (17:52)
--- NOTE | 2022-07-17 19:36 | NUR ---
PT FOUND RESTING COMOFRTABLY IN BED WATCHING TELEVISION. READJUSTED IN BED AND PROVIDED WITH WATER. CALL LIGHT WITHIN REACH. V/S WNL.
--- NOTE | 2022-07-17 20:43 | NUR ---
REPORT GIVEN TO ALEAH
[2022-07-17 21:00] VITALS: BP 104/55
--- NOTE | 2022-07-17 21:07 | NUR ---
PT TRANSPORTED TO ROOM 312-2 ON CARDIAC PER ACLS IN STABLE CONDITION
--- NOTE | 2022-07-17 22:30 | NUR ---
RN NOTE PT RECEIVED IN BED A/O X4 ABLE TO MAKE NEED KNOWN. IN NO RESPIRATORY DISTRESS AT THIS TIME ON ROOM AIR TOLERATING WELL. PT REPORTS MILD GENERALIZED PAIN AT THIS TIME 5/10 ON A NUMERIC PAIN SCALE WILL PROVIDE APPROPRIATE PAIN MANAGEMENT. PT NOTED WITH IV ACCESS ONT HE R HAND #20G S/L AND RAC #20G S/L PATENT FLUSHING WELL. PT STARTED ON NS @100 ML/HR TOLERATED WELL. PT PLACED ON EXTERNAL TELE MONITOR WITH READING OF A- FIB CONTROLLED 60S. PT NOTED WITH ABDOMINAL WOUND PHOTOS TAKEN AND PLACED IN CHART WOUND CARE PROVIDED CLEANED WITH NS APPLIED XEROFORM AND ABDOMINAL PAD. PT NOTED WITH BLE WOUND PHOTOS TAKEN WOUND DRESSINGS APPLIED COVERED WITH ABD PAD WOUND CONSULT ORDERED. PT ALSO NOTED WITH GROIN/ PERINEAL REDNESS. PT ORIENTED TO UNIT AND ROOM. CALL LIGHT PLACED WITHIN REACH. TABLE WITHIN REACH. HOB ELEVATED FOR ASPIRATION PRECAUTIONS. BED IN LOW POSITION. BED ALARM ON AT THIS TIME. ALL NEEDS MET ALL DUE MEDS GIVEN AT THIS TIME.
[2022-07-17] MEDS: MIDODRINE HCL (5MG) 5 MG TABLET PO SCH (22:53)
[2022-07-17] MEDS: ATORVASTATIN 40 MG TABLET PO SCH (22:53)
[2022-07-17] MEDS: HYDROCODONE/APAP 5/325MG TABLET PO PRN (22:56)
--- NOTE | 2022-07-17 22:56 | NUR ---
RN NOTES PT REPORTED 8/10 PAIN ON A NUMERIC PAIN SCALE PROVIDED PT WITH PRN NORCO 5-325MG TOLERATED WELL.
[2022-07-17] MEDS: *INSULIN REGULAR(HUMULIN R)HUM 100 UNIT/ML VIAL SQ PRN (23:04)
[2022-07-18] VITALS: BP 121/49
[2022-07-18] MEDS ORDERED: IOHEXOL-350 100 ML VIAL IV ONE (00:16)
[2022-07-18] MEDS ORDERED: IV NS 0.9% 0 ML IV ONE (00:16)
[2022-07-18] MEDS: IV NS 0.9% 1,000 ML IV PRN ×2 (01:25→09:11)
[2022-07-18] MEDS: ACETAMINOPHEN 325 MG TABLET PO PRN (03:06)
[2022-07-18 04:00] VITALS: BP 110/58
[2022-07-18] MEDS: MIDODRINE HCL (5MG) 5 MG TABLET PO SCH ×3 (05:22→21:41)
[2022-07-18] MEDS: BLOOD SUGAR DIAGNOSTIC 1 EACH STRIP VI SCH ×4 (06:38→21:42)
[2022-07-18] MEDS: INSULIN REGULAR, HUMAN 100 UNIT/ML 3 ML VIAL SQ PRN (06:39)
--- NOTE | 2022-07-18 06:40 | NUR ---
RN CLOSING NOTE Pt alert and oriented x4. Remains on room air tolerating well. Patient had blood glucose reading of 67 this morning. Encouraged patient to drink apple juice. Pt drank apple juice. Will report to change of shift to recheck blood glucose at 0738. Pt running NS at 100 mL/hr on the R AC with no signs of infiltration, no pain at site. Ordered air mattress for wound prevention. Will have day shift follow up. Patient was repositioned every 2 hours and as needed for comfort. Call light placed within reach. Bedside table placed within reach. All nursing needs met. All medications administered as ordered. Patient kept clean and dry at all times. Will endorse continuity of care to day shift nurse.
[2022-07-18 06:46] LABS: BASOPHILS % (AUTO) 0.2 % (0.0-2.0); EOSINOPHILS % (AUTO) 0.3 % (0.0-6.0); HEMATOCRIT 34 % (33-45); HEMOGLOBIN 10.9 g/dL (11.5-14.8); LYMPHOCYTES # (AUTO) 3.9 K/uL (0.8-4.8); LYMPHOCYTES % (AUTO) 25.8 % (20.0-44.0); MEAN CORPUSCULAR HGB CONC 32 g/dl (31.0-36.0); MEAN CORPUSCULAR VOLUME 81 fL (82-100); MONOCYTES # (AUTO) 0.9 K/uL (0.1-1.30); NEUTROPHILS # (AUTO) 10.3 K/uL (1.8-8.9); NEUTROPHILS % (AUTO) 67.7 % (43.0-81.0); PLATELET COUNT (AUTO) 231 K/uL (150-450); RED BLOOD CELL COUNT(AUTO) 4.22 MIL/uL (4.0-5.2); WHITE BLOOD COUNT (AUTO) 15.3 K/uL (4.3-11.0)
[2022-07-18 07:11] LABS: ALANINE AMINOTRANSFERASE 9 U/L (12-78); ALBUMIN 1.7 g/dL (3.4-5.0); ALKALINE PHOSPHATASE 112 U/L (46-116); ASPARTATE AMINOTRANSFERASE 14 U/L (15-37); BILIRUBIN,TOTAL 0.5 mg/dL (0.2-1.0); CALCIUM, SERUM 7.4 mg/dL (8.5-10.1); CARBON DIOXIDE 17 mmol/L (21-32); CHLORIDE 102 mmol/L (98-107); CREATININE 0.3 mg/dL (0.6-1.3); GLUCOSE 74 mg/dL (74-106); MAGNESIUM 1.8 mg/dL (1.8-2.4); PHOSPHORUS 3.2 mg/dL (2.5-4.9); POTASSIUM 3.2 mmol/L (3.5-5.1); SODIUM SERUM 129 mmol/L (136-145); TOTAL PROTEIN, SERUM 4.4 g/dL (6.4-8.2); UREA NITROGEN, BLOOD 9 mg/dL (7-18)
[2022-07-18 07:24] LABS: CHOLESTEROL 145 mg/dL (<200); HDL CHOLESTEROL 39 mg/dL (40-60); LDL 78 mg/dL (0-99); PREALBUMIN 11.2 MG/DL (18.0-35.7); THYROID STIMULATING HORMONE 2.216 uIU/mL (0.358-3.74); TRIGLYCERIDES 133 mg/dL (30-150)
--- NOTE | 2022-07-18 07:45 | NUR ---
COLD STRIP ROLLER OPENING NOTE Patient in bed, awake. A/O x 4, able to make needs known. On room air, breathing evenly and unlabored. No SOB or s/s of distress noted. IV access on Right hand #20 and RAC #20 infusing NS at 100 ml/hr. Safety precautions in place: bed in low, locked position; siderails up x 2; call light within reach. Will continue to monitor. Addendum: 07/18/22 at 0749 by RADHA YOST RN ADD: On tele monitoring showing controlled Afib, HR 76.
[2022-07-18 08:00] VITALS: BP 123/66
[2022-07-18] MEDS: PANTOPRAZOLE 40 MG TABLET.DR PO SCH (08:17)
[2022-07-18] MEDS: MAGNESIUM OXIDE 400 MG TABLET PO SCH (08:17)
[2022-07-18] MEDS: LORATADINE 10 MG TABLET PO SCH (08:17)
[2022-07-18] MEDS: ASPIRIN EC 81 MG TABLET.DR PO SCH (08:17)
[2022-07-18] MEDS: APIXABAN 5 MG TABLET PO SCH ×2 (08:18→16:38)
[2022-07-18] MEDS: HYDROCODONE/APAP 5/325MG TABLET PO PRN ×3 (08:24→21:56)
--- NOTE | 2022-07-18 08:24 | NUR ---
RN NOTE Patient complained of back pain, 8/10 on pain scale. PRN [place] 5/325 given. Will continue to monitor.
--- NOTE | 2022-07-18 11:00 | NUR ---
RN NOTE Purewick attached to patient.
[2022-07-18 12:00] VITALS: BP 120/61
[2022-07-18] MEDS: POTASSIUM CHLORIDE 20 MEQ TAB.PRT.SR PO SCH ×2 (12:10→13:29)
[2022-07-18 15:33] LABS: BILIRUBIN,URINE MODERATE (NEGATIVE); COLOR,URINE YELLOW (YELLOW); LEUKOCYTE ESTERASE ,URINE MODERATE (NEGATIVE); NITRITE, URINE NEGATIVE (NEGATIVE); PROTEIN,URINE NEGATIVE (NEGATIVE); UGLUCOSE NEGATIVE (NEGATIVE); UROBILINOGEN,URINE 0.2 EU/dL (0.2)
[2022-07-18 15:37] LABS: RBC,URINE 0-2 /HPF (0-2); WBC,URINE TOO NUMEROUS TO COUN /HPF (0-3)
[2022-07-18 15:38] LABS: BACTERIA,URINE 1+ /HPF (None Seen); SQUAMOUS EPITHELIAL CELL,UR Few /HPF (None Seen); YEAST,URINE Few /HPF (None Seen)
[2022-07-18 16:00] VITALS: BP 123/54
[2022-07-18] MEDS: MEROPENEM 1 G in IV NS 0.9% 100 ML IV SCH ×2 (16:31→21:41)
--- NOTE | 2022-07-18 16:37 | NUR ---
RN NOTE Patient complained of abdominal pain, 8/10 on pain scale. PRN [place] 5/325 given. Will continue to monitor.
[2022-07-18] MEDS: GLUCERNA SHAKE 237 ML CAN PO SCH (16:58)
[2022-07-18] MEDS: Potassium Chloride 20 MEQ in IV D5/ 0.9% NACL 1,000 ML IV SCH (17:11)
--- NOTE | 2022-07-18 18:49 | NUR ---
PROFILE SAW OPERATOR CLOSING NOTE Patient in bed, resting. A/O x 4, able to make needs known. Stable on room air, breathing evenly and unlabored. No SOB or s/s of distress noted. IV access on Right hand #20 and RAC #20 infusing Potassium chloride 20 MEQ in D5NS at 70 ml/hr. On tele monitoring showing contolled Afib, HR on the 90's. Purewick in place with an output of 200 cc. All needs attended to Due meds given. Turned and repositioned, as tolerated. Safety precautions maintained: bed in low, locked position; siderails up x 2; call light within reach. Will endorsed to casino shift manager nurse for THERESA.
--- NOTE | 2022-07-18 19:30 | NUR ---
RN OPENING NOTE PATIENT IN BED, AWAKE. A/O X 4 AT THIS TIME, ABLE TO MAKE NEEDS KNOWN. PATIENT IS ON RA, TOLERATING WELL. BREATHING EVEN AND UNLABORED. PATIENT'S TELE MONITOR READS AFIB CONTROLLED AT 82 BPM. PATIENT HAS A PUREWICK PRESENT DRAINING YELLOW URINE VIA SUCTION. SAFETY MEASURES IN PLACE: BED LOCKED AND IN LOWEST POSITION, CALL LIGHT WITHIN REACH, SIDE RAILS UP. WILL MONITOR PATIENT CLOSELY.
[2022-07-18 20:00] VITALS: BP 109/61
--- NOTE | 2022-07-18 20:00 | NUR ---
RN NOTE PATIENT REUSING TO BE TRANSFERRED ONTO THE [facility] BED. PATIENT STATES ONLY WANTS AN AIR MATTRESS.
[2022-07-18] MEDS: ATORVASTATIN 40 MG TABLET PO SCH (21:41)
--- NOTE | 2022-07-18 21:56 | NUR ---
RN NOTE PATIENT COMPLAINING OF 7/10 PAIN ON ABDOMEN. NORCO 5/325 GIVEN.
[2022-07-18] MEDS: *INSULIN REGULAR(HUMULIN R)HUM 100 UNIT/ML VIAL SQ PRN (22:30)
[2022-07-19] VITALS: BP 94/52
[2022-07-19] MEDS: ZOLPIDEM TARTRATE 5 MG TABLET PO PRN (00:42)
--- NOTE | 2022-07-19 00:42 | NUR ---
RN NOTE PATIENT GIVEN AMBIEN TO HELP PATIENT FALL ASLEEP
[2022-07-19 04:00] VITALS: BP 153/51
[2022-07-19] MEDS: MIDODRINE HCL (5MG) 5 MG TABLET PO SCH ×3 (05:00→21:44)
[2022-07-19] MEDS: MEROPENEM 1 G in IV NS 0.9% 100 ML IV SCH ×3 (05:15→21:45)
--- NOTE | 2022-07-19 05:23 | NUR ---
RN NOTE MIDODRINE HELD, BP 153/51
[2022-07-19] MEDS: HYDROCODONE/APAP 5/325MG TABLET PO PRN ×2 (06:02→21:45)
[2022-07-19 06:21] LABS: BASOPHILS % (AUTO) 0.2 % (0.0-2.0); EOSINOPHILS % (AUTO) 0.8 % (0.0-6.0); HEMATOCRIT 34 % (33-45); HEMOGLOBIN 10.9 g/dL (11.5-14.8); LYMPHOCYTES % (AUTO) 23.1 % (20.0-44.0); MEAN CORPUSCULAR HGB CONC 32 g/dl (31.0-36.0); MEAN CORPUSCULAR VOLUME 82 fL (82-100); MONOCYTES # (AUTO) 0.8 K/uL (0.1-1.30); MONOCYTES % (AUTO) 6.1 % (2.0-12.0); NEUTROPHILS % (AUTO) 69.8 % (43.0-81.0); PLATELET COUNT (AUTO) 246 K/uL (150-450); WHITE BLOOD COUNT (AUTO) 12.9 K/uL (4.3-11.0)
[2022-07-19 06:36] LABS: CALCIUM, SERUM 7.4 mg/dL (8.5-10.1); CARBON DIOXIDE 17 mmol/L (21-32); CHLORIDE 104 mmol/L (98-107); CREATININE 0.5 mg/dL (0.6-1.3); GLUCOSE 120 mg/dL (74-106); POTASSIUM 3.2 mmol/L (3.5-5.1); SODIUM SERUM 130 mmol/L (136-145); UREA NITROGEN, BLOOD 5 mg/dL (7-18)
[2022-07-19] MEDS: BLOOD SUGAR DIAGNOSTIC 1 EACH STRIP VI SCH ×4 (06:36→21:50)
[2022-07-19] MEDS: INSULIN REGULAR, HUMAN 100 UNIT/ML 3 ML VIAL SQ PRN (06:36)
[2022-07-19] MEDS: Potassium Chloride 20 MEQ in IV D5/ 0.9% NACL 1,000 ML IV SCH ×2 (06:43→21:46)
--- NOTE | 2022-07-19 07:05 | NUR ---
RN CLOSING NOTE PATIENT IN BED, AWAKE. A/O X 4 AT THIS TIME, ABLE TO MAKE NEEDS KNOWN. PATIENT IS ON RA, TOLERATING WELL. BREATHING EVEN AND UNLABORED. PATIENT'S TELE MONITOR READS AFIB CONTROLLED AT 90 BPM. PATIENT HAS A PUREWICK PRESENT DRAINING YELLOW URINE VIA SUCTION, CHANGED AT 0600. PATIENT REQUESTS FOR DRESSINGS NOT TO BE CHANGED AND LET TREATMENT NURSE TO DO IT FOR WOUND CARE CONSULT. PAIN MANAGED WITH NORCO 5/325. BS 103 MG/DL, NO COVERAGE GIVEN. SAFETY MEASURES IN PLACE: BED LOCKED AND IN LOWEST POSITION, CALL LIGHT WITHIN REACH, SIDE RAILS UP. ALL NEEDS MET AND ATTENDED. ALL ORDERS CARRIED OUT. WILL ENDORSE TO DAY SHIFT NURSE FOR THERESA.
--- NOTE | 2022-07-19 07:38 | NUR ---
DEFENCE FORCE MEMBER OTHER RANKS OPENING NOTE Patient in bed, awake. A/O x 4, able to make needs known. On room air, breathing evenly and unlabored. No SOB or s/s of distress noted. IV access on RAC #20 infusing KCl 20 MEQ D5NS at 70 ml/hr. On tele monitoring showing controlled Afib, HR on the 80's. Safety precautions in place: bed in low, locked position; siderails up x 2; call light within reach. Will continue to monitor.
[2022-07-19] MEDS: PANTOPRAZOLE 40 MG TABLET.DR PO SCH (08:23)
[2022-07-19] MEDS: MAGNESIUM OXIDE 400 MG TABLET PO SCH (08:23)
[2022-07-19] MEDS: LORATADINE 10 MG TABLET PO SCH (08:23)
[2022-07-19] MEDS: ASPIRIN EC 81 MG TABLET.DR PO SCH (08:23)
[2022-07-19] MEDS: APIXABAN 5 MG TABLET PO SCH ×2 (08:25→16:38)
[2022-07-19] MEDS: GLUCERNA SHAKE 237 ML CAN PO SCH (08:25)
[2022-07-19] MEDS: POTASSIUM CHLORIDE 20 MEQ TAB.PRT.SR PO SCH ×2 (10:23→21:44)
[2022-07-19] MEDS: *INSULIN REGULAR(HUMULIN R)HUM 100 UNIT/ML VIAL SQ PRN (12:15)
[2022-07-19] MEDS: ENSURE CLEAR 237 ML LIQUID (MIX BERRY) PO SCH (18:01)
--- NOTE | 2022-07-19 18:19 | NUR ---
RN NOTE Patient's IV access on RAC is leaking. IV taken out and reinserted on Left hand #22.
--- NOTE | 2022-07-19 19:18 | NUR ---
HOME HEALTH AID CLOSING NOTE Patient in bed, resting. A/O x 4, able to make needs known. On room air, breathing evenly and unlabored. No SOB or s/s of distress noted. IV access on Left hand #22 infusing KCl 20 MEQ D5NS at 70 ml/hr. On tele monitoring showing controlled Afib, HR on the 80's. All needs attended to. due meds given. Patient refused wound care. Safety precautions in place: bed in low, locked position; siderails up x 2; call light within reach. Will endorse to table games shift manager nurse for THERESA. Addendum: 07/19/22 at 1921 by RADHA YOST RN ADD: Purewick in place draining to an flor colored urine with an output of 200 cc.
--- NOTE | 2022-07-19 19:30 | NUR ---
DESK CLERK OPENING NOTES PATIENT RECEIVED RESTING IN BED COMFORTABLY; A/OX4; BREATHING EVEN AND UNLABORED; NO SOB NOTED, PATIENT TOLERATING ROOM AIR WELL; TELE MONITOR ATTACHED READS CONTROLLED A.FIB 94BPM; L HAND #22G PIV INTACT AND PATENT, TOLERATING IVF WELL; NO S/S OF REDNESS OR INFILTRATION NOTED; PURE WICK CONNECTED TO PATIENT WITH YELLOW OUTPUT; SAFETY PRECAUTIONS IMPLEMENTED; BED LOCKED IN LOW POSITION; SIDE RAILSX2, CALL LIGHT WITHIN EASY REACH; BED ALARM ON; WILL CONT PLAN OF CARE
[2022-07-19 20:00] VITALS: BP 122/55
--- NOTE | 2022-07-19 20:00 | NUR ---
PERMACULTURE CONTRACTOR NOTES PER AM SHIFT, WRONG BED ORDERED; WILL INFORM ONCOMING SHIFT REGARDING BED ORDER; PATIENT BED SHOULD COME IN AM; WILL ENDORSE, CHARGE NURSE AWARE
[2022-07-19] MEDS: ATORVASTATIN 40 MG TABLET PO SCH (21:44)
[2022-07-19] MEDS: MUPIROCIN OINT 2% 22 GM TUBE NS SCH (21:46)
--- NOTE | 2022-07-19 22:42 | NUR ---
UNDERPRESSER HAND NOTE PATIENT REFUSING FOR WOUND PICTURES, PATIENT STATED SHE DID NOT WANT THE DRESSINGS TO BE REMOVED, ONLY FEW PICTURES WERE TAKEN PER PROTOCOL AND FILED IN PATIENT BINDER
[2022-07-20] VITALS: BP 116/61
[2022-07-20] MEDS: ZOLPIDEM TARTRATE 5 MG TABLET PO PRN (00:06)
[2022-07-20 04:00] VITALS: BP 126/56
[2022-07-20] MEDS: MEROPENEM 1 G in IV NS 0.9% 100 ML IV SCH ×3 (04:58→22:40)
[2022-07-20] MEDS: MIDODRINE HCL (5MG) 5 MG TABLET PO SCH ×3 (05:33→21:42)
--- NOTE | 2022-07-20 06:29 | NUR ---
MULTI SENSOR OPERATOR CLOSING NOTES PATIENT RESTING IN BED COMFORTABLY; A/OX4; BREATHING EVEN AND UNLABORED; NO SOB NOTED, PATIENT TOLERATING ROOM AIR WELL; TELE MONITOR ATTACHED READS CONTROLLED A.FIB 91BPM; L HAND #22G PIV INTACT AND PATENT, TOLERATING IVF WELL; NO S/S OF REDNESS OR INFILTRATION NOTED; PURE WICK CONNECTED TO PATIENT WITH YELLOW OUTPUT; SAFETY PRECAUTIONS IMPLEMENTED; BED LOCKED IN LOW POSITION; SIDE RAILSX2, CALL LIGHT WITHIN EASY REACH; BED ALARM ON; WILL ENDORSE THERESA TO ONCOMING SHIFT
[2022-07-20] MEDS: BLOOD SUGAR DIAGNOSTIC 1 EACH STRIP VI SCH ×4 (06:34→22:23)
[2022-07-20 06:52] LABS: BASOPHILS % (AUTO) 0.3 % (0.0-2.0); EOSINOPHILS % (AUTO) 1.4 % (0.0-6.0); HEMATOCRIT 31 % (33-45); HEMOGLOBIN 10.2 g/dL (11.5-14.8); LYMPHOCYTES # (AUTO) 2.5 K/uL (0.8-4.8); LYMPHOCYTES % (AUTO) 31.2 % (20.0-44.0); MEAN CORPUSCULAR HGB CONC 33 g/dl (31.0-36.0); MEAN CORPUSCULAR VOLUME 81 fL (82-100); MONOCYTES # (AUTO) 0.6 K/uL (0.1-1.30); MONOCYTES % (AUTO) 6.9 % (2.0-12.0); NEUTROPHILS # (AUTO) 4.9 K/uL (1.8-8.9); NEUTROPHILS % (AUTO) 60.2 % (43.0-81.0); PLATELET COUNT (AUTO) 198 K/uL (150-450); WHITE BLOOD COUNT (AUTO) 8.1 K/uL (4.3-11.0)
--- NOTE | 2022-07-20 07:22 | NUR ---
INVESTMENT BROKER OPENING NOTES RECEIVED PATIENT AWAKE IN BED IN NO ACUTE SIGNS OF DISTRESS. A/OX4, ABLE TO MAKE NEEDS KNOWN, DENIES PAIN OR ANY DISCOMFORTS AT THIS TIME. ON ROOM AIR, BREATHING EVEN AND UNLABORED. TELE-MONITOR READS A-FIB CONTROLLED WITH HR OF 96 BPM AT THIS TIME, NO C/O CARDIAC DISTRESS VOICED AT THIS TIME. IV ACCESS ON LEFT HAND #22G INTACT WITH IVF OF KCL 20MEQ IN D5NS@ 70ML/HR INFUSING WELL. SAFETY PRECAUTIONS MAINTAINED: BED LOCKED IN LOW POSITION, SIDE RAILX2, CALL LIGHT WITHIN EASY REACH, BED ALARM ON. WILL CONTINUE TO MONITOR PT ACCORDINGLY.
[2022-07-20] MEDS: ASPIRIN EC 81 MG TABLET.DR PO SCH (08:08)
[2022-07-20] MEDS: LORATADINE 10 MG TABLET PO SCH (08:08)
[2022-07-20] MEDS: PANTOPRAZOLE 40 MG TABLET.DR PO SCH (08:08)
[2022-07-20] MEDS: MAGNESIUM OXIDE 400 MG TABLET PO SCH (08:08)
[2022-07-20] MEDS: MUPIROCIN OINT 2% 22 GM TUBE NS SCH ×2 (08:10→21:49)
[2022-07-20] MEDS: APIXABAN 5 MG TABLET PO SCH ×2 (08:11→16:07)
[2022-07-20] MEDS: ENSURE CLEAR 237 ML LIQUID (MIX BERRY) PO SCH ×2 (08:12→17:16)
[2022-07-20 08:20] LABS: CALCIUM, SERUM 7.3 mg/dL (8.5-10.1); CARBON DIOXIDE 17 mmol/L (21-32); CHLORIDE 104 mmol/L (98-107); CREATININE 0.4 mg/dL (0.6-1.3); GLUCOSE 100 mg/dL (74-106); POTASSIUM 3.4 mmol/L (3.5-5.1); SODIUM SERUM 131 mmol/L (136-145); UREA NITROGEN, BLOOD 3 mg/dL (7-18)
[2022-07-20] MEDS ORDERED: POTASSIUM CHLORIDE 20 MEQ TAB.PRT.SR PO SCH (10:00)
[2022-07-20 10:11] VITALS: BP 108/77
[2022-07-20] MEDS ORDERED: Z GUARD REMEDY 4 OZ OINT TP PRN (11:00)
--- NOTE | 2022-07-20 11:00 | NUR ---
WOUND CARE CONSULT: PT PRESENTS WITH MULTIPLE SKIN ISSUES INCLUDING ABDOMINAL WOUNDS, RASHES TO BREASTFOLDS AND ABDOMINAL/GROIN FOLDS, AND LOWER EXTREMITY WOUNDS, ALL PRESENT ON ADMISSION. PT IS INCONTINENT OF URINE AND LOOSE STOOL. SURGICAL AND PODIATRY CONSULTS CALLED TO DR DAVE AND DR LOTT PER DR RAMIREZ. FIRST STEP LOW AIRLOSS MATTRESS IS ON ORDER. DISCUSSED SKIN PROTECTION WITH NURSING STAFF. MD IN AGREEMENT WITH PLAN OF CARE. Addendum: 07/20/22 at 1123 by KAELYN PALM WNDNU DISCUSSED WOUND TREATMENT PLAN FOR ABDOMINAL WOUNDS WITH PLASTIC SURGERY P.A. AND NEW ORDERS RECEIVED, DISCUSSED WITH NURSING STAFF.
[2022-07-20] MEDS: INSULIN REGULAR, HUMAN 100 UNIT/ML 3 ML VIAL SQ PRN ×2 (11:37→17:14)
[2022-07-20] MEDS: Z GUARD REMEDY 4 OZ OINT TP SCH (11:55)
[2022-07-20] MEDS: SILVER SULFADIAZINE CREAM 25 GM TUBE TP SCH (12:44)
[2022-07-20] MEDS: Potassium Chloride 20 MEQ in IV D5/ 0.9% NACL 1,000 ML IV SCH (13:19)
[2022-07-20 13:24] VITALS: BP 118/56
[2022-07-20] MEDS: HYDROCODONE/APAP 5/325MG TABLET PO PRN ×2 (16:05→21:41)
--- NOTE | 2022-07-20 16:09 | NUR ---
RN NOTES PT C/O ACHING ABDOMINAL PAIN, 7/10 SCALE. PRN NORCO 5/325 MG PO GIVEN AT 1605. WILL CONTINUE TO MONITOR AND REASSESS PT.
[2022-07-20] MEDS: CLOTRIMAZOLE 1% 15 GM TUBE TP SCH (16:13)
[2022-07-20 18:08] VITALS: BP 113/58
--- NOTE | 2022-07-20 18:48 | NUR ---
INSTRUCTIONAL SUPPORT TECHNICIAN CLOSING NOTES PATIENT IN BED AWAKE AND WATCHING TV AT THIS TIME. A/OX4, ABLE TO MAKE NEEDS KNOWN. TOLERATING ROOM AIR WITH NO SOB NOTED DURING SHIFT. TELE-MONITOR SHOWS A-FIB CONTROLLED WITH HR OF 90-110 BPM DURING SHIFT, NO C/O CARDIAC DISTRESS VOICED. IV ACCESS ON LEFT HAND #22G INTACT WITH IVF OF KCL 20MEQ IN D5NS @ 70ML/HR INFUSING WELL, NO S/S OF INFILTRATION AT SITE NOTED. PT TURNED AND REPOSITIONED FROM SIDE TO SIDE Q2HRS AND PRN. ALL NEEDS AND CARE ATTENDED WELL. SAFETY PRECAUTIONS MAINTAINED: BED LOCKED IN LOW POSITION, SIDE RAIL UP X2, CALL LIGHT AND TRAY TABLE WITHIN EASY REACH OF PT, BED ALARM ON. WILL ENDORSE THERESA TO BRUSHER TENDER NURSE.
[2022-07-20 20:00] VITALS: BP 106/60
--- NOTE | 2022-07-20 20:00 | NUR ---
RN NOTE: ALERT X4. MOIST ORAL MUCOSA. HOB ELEVATED 30 DEGREE ANGLE. BILATERAL HALF SIDE RAILS UPX2. CALL LIGHT IN REACH. IV ON LT. HAND G22 RUNNING IVF D5NS@75 ML/HR. [id number]. IV SITE INTACT WITH NO S/S OF COMPLICATIONS. ABDOMINAL WOUND DRESSINGS CLEAN AND DRY. TELE READING AFIB CONTROLLED 90'S. FALL AND SAFETY PRECAUTIONS MAINTAINED. BED LOCKED, EXIT ALARM, IN LOW POSITION. BILATERAL HALF SIDE RAILS UP X2. CALL LIGHT IN REACH. DECLINES PAIN OR DISCOMFORT.
[2022-07-20] MEDS: ATORVASTATIN 40 MG TABLET PO SCH (21:42)
[2022-07-20] MEDS: METOPROLOL TARTRATE 25 MG TABLET PO SCH (21:42)
[2022-07-20] MEDS: *INSULIN REGULAR(HUMULIN R)HUM 100 UNIT/ML VIAL SQ PRN (22:24)
[2022-07-20] MEDS ORDERED: MEROPENEM 1 G VIAL IV ONE (22:27)
[2022-07-21] VITALS: BP 111/54
[2022-07-21] MEDS: ZOLPIDEM TARTRATE 5 MG TABLET PO PRN (01:38)
[2022-07-21] MEDS: Potassium Chloride 20 MEQ in IV D5/ 0.9% NACL 1,000 ML IV SCH (02:28)
[2022-07-21] MEDS: ACETAMINOPHEN 325 MG TABLET PO PRN ×2 (03:24→05:49)
[2022-07-21 04:00] VITALS: BP 89/48
[2022-07-21 05:00] VITALS: BP 98/59
[2022-07-21] MEDS: MEROPENEM 1 G in IV NS 0.9% 100 ML IV SCH ×2 (05:30→13:27)
[2022-07-21] MEDS: MIDODRINE HCL (5MG) 5 MG TABLET PO SCH ×2 (05:49→13:30)
[2022-07-21 06:45] LABS: BASOPHILS % (AUTO) 0.4 % (0.0-2.0); EOSINOPHILS % (AUTO) 1.6 % (0.0-6.0); HEMATOCRIT 30 % (33-45); HEMOGLOBIN 9.7 g/dL (11.5-14.8); LYMPHOCYTES # (AUTO) 2.8 K/uL (0.8-4.8); LYMPHOCYTES % (AUTO) 29.8 % (20.0-44.0); MEAN CORPUSCULAR HGB CONC 33 g/dl (31.0-36.0); MEAN CORPUSCULAR VOLUME 82 fL (82-100); MONOCYTES # (AUTO) 0.7 K/uL (0.1-1.30); MONOCYTES % (AUTO) 6.9 % (2.0-12.0); NEUTROPHILS # (AUTO) 5.7 K/uL (1.8-8.9); NEUTROPHILS % (AUTO) 61.3 % (43.0-81.0); PLATELET COUNT (AUTO) 190 K/uL (150-450); RED BLOOD CELL COUNT(AUTO) 3.65 MIL/uL (4.0-5.2); WHITE BLOOD COUNT (AUTO) 9.4 K/uL (4.3-11.0)
--- NOTE | 2022-07-21 06:50 | NUR ---
RN CLOSING NOTE: ALERT X4. MOIST ORAL MUCOSA. UNLABORED BREATHING O2 SAT AT 97 % AT ROOM AIR. HOB ELEVATED 30 DEGREE ANGLE. BILATERAL HALF SIDE RAILS UPX2. CALL LIGHT IN REACH. IV ON LT. HAND G22 RUNNING IVF D5NS@75 ML/HR. [id number]. IV SITE INTACT WITH NO S/S OF COMPLICATIONS. BLOOD GLUCOSE CHECKED WITH NO S/S OF HYPO OR HYPERGLYCEMIA. ABDOMINAL WOUND, BLE WOUNDS WITH DRESSINGS CLEAN AND DRY. TURNED AND REPOSITIONED AND OFFLOADING. TYLENOL PRN GIVEN ORDERED FOR C/O PAIN 01/15 BLE AND EFFECTIVE. CONTINUES ON ABX ORDERED. TELE READING AFIB CONTROLLED 90'S. FALL AND SAFETY PRECAUTIONS MAINTAINED. BED LOCKED, EXIT ALARM, IN LOW POSITION. BILATERAL HALF SIDE RAILS UP X2. CALL LIGHT IN REACH. DECLINES PAIN OR DISCOMFORT.
[2022-07-21 07:07] LABS: CARBON DIOXIDE 20 mmol/L (21-32); CHLORIDE 105 mmol/L (98-107); CREATININE 0.3 mg/dL (0.6-1.3); GLUCOSE 117 mg/dL (74-106); POTASSIUM 3.5 mmol/L (3.5-5.1); SODIUM SERUM 131 mmol/L (136-145); UREA NITROGEN, BLOOD 3 mg/dL (7-18)
--- NOTE | 2022-07-21 07:27 | NUR ---
DRIFTMAN OPENING NOTE RECEIVED PT AWAKE IN BED. A/O X4, ABLE TO MAKE NEEDS KNOWN. ON RA, TOLERATING WELL. NO SOB NOTED. NOT IN ANY SIGN OF RESPIRATORY DISTRESS. PT ON TELE BRAKE DRUM LATHE OPERATOR WITH CURRENT READING OF AFIB CONTROLLED, HR 83. NO C/O CARDIAC DISTRESS VOICED OUT AT THIS TIME. IV ACCESS IN L HAND G#22 INTACT AND PATENT WITH POTASSIUM CHLORIDE 20 MEQ IN D5 NS AT 70ML/HR. SAFETY MEASURES IN PLACE: BED IN LOWEST AND LOCKED POSITION, BED ALARM ON, SIDE RAILS UPX2, AND CALL LIGHT WITHIN REACH. WILL CONTINUE TO MONITOR PT.
[2022-07-21 08:00] VITALS: BP 100/45
[2022-07-21] MEDS: BLOOD SUGAR DIAGNOSTIC 1 EACH STRIP VI SCH ×2 (08:05→12:06)
[2022-07-21] MEDS: INSULIN REGULAR, HUMAN 100 UNIT/ML 3 ML VIAL SQ PRN ×2 (08:06→12:06)
[2022-07-21] MEDS: PANTOPRAZOLE 40 MG TABLET.DR PO SCH (08:10)
[2022-07-21] MEDS: ENSURE CLEAR 237 ML LIQUID (MIX BERRY) PO SCH ×2 (08:10→17:00)
[2022-07-21] MEDS: METOPROLOL TARTRATE 25 MG TABLET PO SCH (09:00)
[2022-07-21] MEDS: APIXABAN 5 MG TABLET PO SCH ×2 (09:52→17:00)
[2022-07-21] MEDS: LORATADINE 10 MG TABLET PO SCH (09:53)
[2022-07-21] MEDS: ASPIRIN EC 81 MG TABLET.DR PO SCH (09:53)
[2022-07-21] MEDS: MAGNESIUM OXIDE 400 MG TABLET PO SCH (09:53)
[2022-07-21] MEDS: Z GUARD REMEDY 4 OZ OINT TP SCH (09:56)
[2022-07-21] MEDS: MUPIROCIN OINT 2% 22 GM TUBE NS SCH (09:56)
[2022-07-21] MEDS: CLOTRIMAZOLE 1% 15 GM TUBE TP SCH ×2 (09:56→17:00)
[2022-07-21] MEDS: HYDROCODONE/APAP 5/325MG TABLET PO PRN (10:09)
--- NOTE | 2022-07-21 10:11 | NUR ---
RN NOTE PT COMPLAIN OF BACK PAIN WITH PAIN SCALE LEVEL OF 7/10. NORCO 5/325MG 1 TAB ADMINISTERED ORDERED PRN Q4H. WILL MONITOR AND REASSESS PT.
[2022-07-21] MEDS: SILVER SULFADIAZINE CREAM 25 GM TUBE TP SCH (10:14)
[2022-07-21 16:00] VITALS: BP 101/64
--- NOTE | 2022-07-21 17:00 | NUR ---
CRAWLER DRAGLINE OPERATOR NOTE PT DISCHARGED TO [facility] IN STABLE CONDITION. PT A/O X4, ABLE TO MAKE NEEDS KNOWN. ON RA, TOLERATING WELL WITH SPO2 98%. NO SOB NOTED. NOT IN ANY SIGN OF RESPIRATORY DISTRESS. CARDIAC TELE MONITOR REMOVED WITH LAST READING OF AFIB CONTROLLED, HR 80 AND TELE BOX GIVEN TO JOY LOADER CHRIS. NO C/O CARDIAC DISTRESS VOICED OUT. VITAL SIGNS TAKEN, STABLE, AND RECORDED. PT REFUSED SKIN ASSESSMENTS AND PHOTOGRAPHS OF SKIN ISSUES. PT ALSO REFUSED WOUND TREATMENTS. PER PT SHE JUST WANTS TO GET READY TO LE[place]. ALL BELONGINGS ACCOUNTED FOR. DISCHARGED INSTRUCTIONS AND HEALTH TEACHINGS GIVEN TO PT AND PT VERBALIZED UNDERSTANDING. IV ACCESS IN L HAND G #22 INTACT AND PATENT FOR DISCHARGE IV ANTIBIOTICS ORDER. REPORT GIVEN EARLIER TO RODOLFO RUBY OF [facility] AND [facility]. PT LEFT THE UNIT AT 1655 VIA GURNEY. PICKED UP BY 2 DECKHAND FISHING VESSEL. MD AND CHARGED NURSE AWARE OF DISCHARGED.
== END 2022-07-21 17:00 | DRG 69 ==
LOC: ER 12:18 → TRANSITION 14:30 → TELE 20:29
PROVIDERS: ADMIT Internal Medicine; ATTEND Internal Medicine
DX: G45.9 Transient cerebral ischemic attack, unspecified (principal); E43 Unspecified severe protein-calorie malnutrition; E87.1 Hypo-osmolality and hyponatremia; N39.0 Urinary tract infection, site not specified; E87.2 Acidosis; I87.313 Chronic venous hypertension (idiopathic) with ulcer of bilateral lower extremity; L97.829 Non-pressure chronic ulcer of other part of left lower leg with unspecified severity; L97.819 Non-pressure chronic ulcer of other part of right lower leg with unspecified severity; I48.91 Unspecified atrial fibrillation; E11.51 Type 2 diabetes mellitus with diabetic peripheral angiopathy without gangrene; E11.649 Type 2 diabetes mellitus with hypoglycemia without coma; E86.0 Dehydration; E88.09 Other disorders of plasma-protein metabolism, not elsewhere classified; E87.6 Hypokalemia; F03.90 Unspecified dementia, unspecified severity, without behavioral disturbance, psychotic disturbance, mood disturbance, and anxiety; G47.00 Insomnia, unspecified; J44.9 Chronic obstructive pulmonary disease, unspecified; Z86.73 Personal history of transient ischemic attack (TIA), and cerebral infarction without residual deficits; K43.9 Ventral hernia without obstruction or gangrene; R13.10 Dysphagia, unspecified; I87.2 Venous insufficiency (chronic) (peripheral); Z79.4 Long term (current) use of insulin; Z79.899 Other long term (current) drug therapy; Z20.822 Contact with and (suspected) exposure to COVID-19; R53.1 Weakness; D72.829 Elevated white blood cell count, unspecified; Z74.01 Bed confinement status; G89.29 Other chronic pain; R91.8 Other nonspecific abnormal finding of lung field; N32.81 Overactive bladder; Z79.01 Long term (current) use of anticoagulants; R29.708 NIHSS score 8; L89.626 Pressure-induced deep tissue damage of left heel; Z22.322 Carrier or suspected carrier of Methicillin resistant Staphylococcus aureus; I25.10 Atherosclerotic heart disease of native coronary artery without angina pectoris; Z68.33 Body mass index [BMI] 33.0-33.9, adult; I10 Essential (primary) hypertension; R47.1 Dysarthria and anarthria; S31.109A Unspecified open wound of abdominal wall, unspecified quadrant without penetration into peritoneal cavity, initial encounter; X58.XXXA Exposure to other specified factors, initial encounter; Y93.9 Activity, unspecified; Y92.129 Unspecified place in nursing home as the place of occurrence of the external cause
CPT/HCPCS: 36415; 70450-TC; 70496-TC; 70498-TC; 70551-TC; 71045-TC; 80048-TC; 80053-TC; 80061-TC; 81001; 82962-TC; 83605-TC; 83735-TC; 84100-TC; 84134-TC; 84443-TC; 84484-TC; 85025-TC; 85730-TC; 86850-TC; 87040-TC; 87081-TC; 87086-TC; 92526; 92611-TC; 93307-TC; 97112-TC; 97530-TC; A6253; A6403; C9803; G0378; J1815; J2185; J3480; J7030; J7042; J7050; Q9967